=== PATIENT | male | born 1960 | race Caucasian/White ===

== ENCOUNTER → 2023-06-13 09:51 | Outpatient (CLI) | payer OTHER, SELFPAY ==
--- NOTE | 2023-06-13 | DI.CT.S_ITS ---
PROCEDURE: CT ABDOMEN LIVER PROTOCOL INDICATIONS: LIVER MASSES/MICROSCOPIC HEMATURIA/ENLARGED PROSTA TECHNIQUE: 4 phase scanning was performed. Non-contrast 5 mm axial sections acquired from the diaphragm to the iliac crests. Following the administration of intravenous contrast, 5 mm thick arterial-phase, portal venous-phase, and 5-minute delayed phase images were acquired through the liver. 5 mm thick coronal and sagittal reformats were performed. For radiation dose reduction, the following was used: automated exposure control, adjustment of mA and/or kV according to patient size. COMPARISON: None. FINDINGS: Image quality: Excellent. Lung bases: Lung bases are clear. Heart size is normal. Liver: 3 small hepatic lesions are identified. Segment 2, segment 4A, and segment 6. The segment 6 for example measuring 2.6 cm, (01/17), demonstrates peripheral nodular discontinuous enhancement with progressive filling. Liver is normal in size. Conventional and patent hepatic arterial anatomy. Other solid organs: Gallbladder is unremarkable. Biliary system is non dilated. Pancreas is normal in morphology. Spleen is normal in size and enhancement. No adrenal nodules. Both kidneys demonstrate normal size and enhancement, without hydronephrosis. Small nonobstructing left kidney stone. Nodes and vessels: No retroperitoneal or mesenteric adenopathy by size criteria. Aorta and inferior vena cava are normal in size. Bowel and peritoneum: Unenhanced bowel loops are normal in caliber. No free fluid or air. Bones: No suspicious bony lesions. No vertebral body compression fractures. Miscellaneous: No ventral hernias. IMPRESSION: 1. Three small benign hepatic hemangiomas. 2. Punctate nonobstructing left kidney stone. Dictated by: Jaden Fry M.D. on 06/13/2023 at 16:18 Approved by: Jaden Fry M.D. on 06/13/2023 at 16:25
[2023-06-13 10:50] LABS: Estimated Glomerular Filt Rate > 60 mL/min (>60)
== END ==
PROVIDERS: Radiology Diagnostic Radiology; Referring Provider Family Medicine; Visit Provider Family Medicine
DX: R16.0 Hepatomegaly, not elsewhere classified (principal); R31.29 Other microscopic hematuria; N40.0 Benign prostatic hyperplasia without lower urinary tract symptoms; D18.03 Hemangioma of intra-abdominal structures; N20.0 Calculus of kidney
CPT/HCPCS: 36415; 74170; 82565; Q9967